=== PATIENT | male | born 1985 | race Caucasian/White ===

== ENCOUNTER 2016-10-26 23:36 | Inpatient (IN) | payer MEDICARE, OTHER ==
--- NOTE | ~2016-10-26 | PA ---
Unit #: [id number] #: [id number] Patient: ROSA MARIA MACIAS [id number] [facility] [address] [place] [address] [id number] MR#: [id number] NAME: ROSA MARIA MACIAS. ROOM: [facility] Age: 31 Sex: M Admission Date: 10/26/2016 : 1985 Date of Assessment: 10/27/2016 Attending Physician: Sukumar Willams M.D. Admitting Physician: Sukumar Willams M.D. Primary Care Physician: Primary Care Physician No PSYCHIATRIC ASSESSMENT IDENTIFYING INFORMATION The patient is a 31-year-old single white male admitted to the [address] [place] [address] unit after presenting to this facility voicing positive suicidal ideation. INFORMANT(S) Patient. RELIABILITY Fair. CHIEF COMPLAINT The presiding judge told me to come. HISTORY OF PRESENT ILLNESS The patient is a 31-year-old single white male just released from incarceration. 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 The patient reports that he had recently relapsed on heroin and had spent some time in [facility]. He has been off his medications during that time and now is reporting increased depression and thoughts of suicide though he reports that these have resolved somewhat. He was last prescribed Wellbutrin, Neurontin and Zyprexa by Dr. Montague who treated him at this facility in late August 2016. For a more complete history of present illness, please refer to previous dictated notes. PAST PSYCHIATRIC HISTORY Reviewed, no changes. FAMILY HISTORY/SOCIAL HISTORY Reviewed, no changes. MEDICAL HISTORY Reviewed, no changes. MEDICATION HISTORY 1. Neurontin. 2. Claritin. 3. Wellbutrin XL. 4. Zyprexa. ALLERGIES Chloral hydrate. Unit #: [id number] #: [id number] Patient: ROSA MARIA MACIAS MENTAL STATUS EXAM At this time, reveals the patient to be a well-developed, well-nourished white male appearing stated age. He is in no apparent physical distress at time of examination. He is awake, alert, oriented in spheres. His mood is mildly dysphoric. His affect is constricted. Speech is generally relevant and coherent. There are no gross deficits in memory or cognition noted. Intelligence is judged to be in the average range based on fund of knowledge. The patient is cooperative throughout the interview. He is currently reporting positive suicidal ideation. He denies homicidal ideation. He denies any psychotic symptoms. His judgement and insight appear to be reasonably intact. ASSETS AND LIABILITIES Assets, motivation for change. Liabilities, lack of resources, legal issues. ADMITTING DIAGNOSES 1. Opioid use disorder. 2. Dysthymic disorder. 3. Environmental allergies. PSYCHIATRIC PLAN/TREATMENT GOALS The patient will be restarted on previously prescribed medications. I will reluctantly restart Neurontin but will not plan to refill this medication given its potential for abuse with opioids. The patient will participate in appropriate prather and milieu activities and will be transferred to a unit where he can participate in chemical dependence programming. ESTIMATED LENGTH OF STAY Three to five days. Dictated by... Sukumar Willams M.D. CHAYO/skylar TD: 10/27/2016 11:19 JOB #: [id number] PSYCHIATRIC ASSESSMENT X Sukumar Willams MD X PSYCHIATRIC ASSESSMENT
--- NOTE | ~2016-10-26 | PN ---
Unit #: [id number] #: [id number] Patient: ROSA MARIA MACIAS [id number] [facility] [address] [place] [address] [id number] MR#: [id number] NAME: ROSA MARIA MACIAS. ROOM: P202 Age: 31 Sex: M Admission Date: 10/26/2016 : 1985 Attending Physician: Sukumar Willams M.D. Admitting Physician: Sukumar Willams M.D. Primary Care Physician: Primary Care Physician Michelle GAMING NOTES DATE 10/27/2016 DISCUSSION The patient is complaining of some irritability and anxiety. He states that he has been on propanolol in the past and request re-initiation of this medication. We will start the medication at a dose of a 20 mg twice daily. Dictated by... Sukumar Willams M.D. CB/surya TD: 10/28/2016 14:22 JOB #: [id number] DOROTHY GAMING NOTES X Sukumar Willams MD PROGRESS NOTE
--- NOTE | ~2016-10-26 | DS ---
Unit #: [id number] #: [id number] Patient: ROSA MARIA MACIAS [id number] [place] [address] [id number] MR#: [id number] NAME: ROSA MARIA MACIAS. ROOM: P202 Age: 31 Sex: M Admission Date: 10/26/2016 : 1985 Discharge Date: 10/29/2016 Attending Physician: Sukumar Willams M.D. Primary Care Physician: Primary Care Physician No DISCHARGE SUMMARY REASON FOR ADMISSION The patient is a 31-year-old single white male, admitted to the [address] [place] [address] unit with a history of opioid dependence and depression. HOSPITAL COURSE The patient was admitted to the [address] [place] [address] unit and placed on suicide precautions. He had been recommend to this facility by his optics technical officer after producing a "dirty urine." The patient reports that the patient's stay in the hospital was a brief and uneventful one. He did complain of some daytime jitteriness and reported history of positive response to Inderal. He was restarted on this medication at a dose of 20 mg daily and was continued on previously prescribed Wellbutrin and Zyprexa. By 10/29/2016, the patient was in brighter spirits and requested discharge. He was agreeable with plan for followup in the intensive outpatient program provided by this facility and discharge was ordered. FINAL DIAGNOSES Opioid use disorder, dysthymic disorder, environmental allergies. DISPOSITION ON DISCHARGE The patient is discharged on the following medications; Wellbutrin XL 150 mg q.a.m. for depression, Zyprexa 5 mg at h.s. for mood stabilization, Inderal 20 mg b.i.d. for anxiety, Neurontin 800 mg t.i.d. for pain, Claritin 10 mg once daily for environmental allergies. DISCHARGE INSTRUCTIONS No dietary or physical restrictions were placed on the patient at the time of discharge. FOLLOWUP Followup will take place through the auspices of the chemical dependency intensive outpatient program provided by this facility. PROGNOSIS The patient's prognosis is considered fair. Dictated by... Sukumar Willams M.D. CB/anthony TD: 10/30/2016 01:31 Unit #: [id number] #: [id number] Patient: ROSA MARIA MACIAS JOB #: [id number] DISCHARGE SUMMARY X Sukumar Willams MD DISCHARGE SUMMARY
--- NOTE | ~2016-10-26 | HP ---
Unit #: [id number] #: [id number] Patient: ROSA MARIA MACIAS [id number] [place] [address] [id number] I MR#: [id number] NAME: ROSA MARIA MACIAS. ROOM: P202 Age: 31 Sex: M Admission Date: 10/26/2016 : 1985 Attending Physician: Sukumar Willams M.D. Admitting Physician: Sukumar Willams M.D. Primary Care Physician: Primary Care Physician No HISTORY AND PHYSICAL HISTORY OF PRESENT ILLNESS Rosa Maria is a 31-year-old male admitted on 10/26/[address] [place] [address] for suicidal ideation. PAST MEDICAL HISTORY None. PAST SURGICAL HISTORY 1. Tonsil and adenoidectomy. 2. Bilateral ear tube placement. ALLERGIES Chloral hydrate. SOCIAL HISTORY No tobacco use. Does report occasional alcohol use and daily heroin use. He was recently in long-term and has not used in the past month. FAMILY HISTORY Noncontributory. REVIEW OF SYSTEMS CONSTITUTIONAL: No fever or chills. HEENT: Denies any sore throat, ear pain or runny nose. CARDIOVASCULAR: Denies chest pain, irregular heart rhythm or palpitations. CHEST: Denies shortness of breath or cough. No hemoptysis. GASTROINTESTINAL: Denies nausea, vomiting, diarrhea or chronic constipation. ENDOCRINE: Denies history of increased thirst or urination. No recent significant weight loss or gain. GENITOURINARY: Denies dysuria, frequency, or hematuria. SKIN: Denies any rashes. HEMATOLOGIC: Denies history of increased bleeding or bruising. MUSCULOSKELETAL: Denies any hot, swollen joints. No generalized muscle pain. NEUROLOGIC: Denies problems with vision or speech. No frequent, severe headaches. No numbness, tingling or weakness in any extremities. Denies loss of bladder or bowel control. CURRENT MEDICATIONS None. PHYSICAL EXAMINATION Unit #: [id number] #: [id number] Patient: ROSA MARIA MACIAS GENERAL: Alert, oriented, in no acute distress. VITAL SIGNS: Blood pressure 137/87, heart rate 100, temperature 98.4. HEIGHT: 6 feet 1. WEIGHT: 203 pounds. SKIN: Warm and dry without rash or lesion. HEENT: Normocephalic. TMs not viewed. Oral and nasal passages clear. Conjunctivae clear. PERRLA. EOMs intact. NECK: Supple without lymphadenopathy or thyromegaly. HEART: Regular rate and rhythm without murmur. LUNGS: Clear. ABDOMEN: Soft, nontender, without masses or hepatosplenomegaly. : Not done. EXTREMITIES: No evidence of cyanosis, clubbing or edema. Moves all without focal deficit. NEUROLOGICAL: Grossly within normal limits. Cranial Nerves: II: Visual harrell are intact. III, IV AND : Extraocular movements are intact. Pupils are equal, round and reactive to light. V: Facial sensation is grossly normal. VII: Facial movements and expression are normal. VIII: Auditory acuity grossly intact. IX, X: Uvula is midline. Phonation is normal. XI: Patient shrugs shoulders and turns head normally. XII: Tongue protrudes in the midline. Sensory and Motor Function: Sensory and motor sensation is grossly normal. Motor: moves all extremities well. Coordination: Gait is normal. Deep Tendon Reflexes: Intact. IMPRESSION Psychiatric admission. RECOMMENDATIONS PSYCHIATRIC: Per psychiatrist. MEDICAL: No contraindications to participate in facility's activities. MEDICAL PROGNOSIS Good. MEDICAL CONDITION Stable. Dictated by... Gisela Lockwood/skylar TD: 10/27/2016 18:36 JOB #: [id number] Unit #: [id number] #: [id number] Patient: ROSA MARIA MACIAS HISTORY AND PHYSICAL X JENNIFER NEAL APRN X HISTORY AND PHYSICAL
[~2016-10-26 23:36] MED LIST: AMOXICILLIN PO; DICLOFENAC PO; FLEXERIL PO; KETOPROFEN PO; MEDROL PO; VICODIN 5/500 T1 TAB PO; [UNRECOGNIZED DRUG - REMARK]; [UNRECOGNIZED DRUG - REMARK]
[2016-10-27 14:24] LABS: URINE APPEARANCE CLEAR; URINE BILIRUBIN NEG (NEG); URINE BLOOD NEG (NEG); URINE COLOR YELLOW; URINE GLUCOSE NEG (NEG); URINE KETONE NEG (NEG); URINE LEUKOCYTE ESTERASE NEG (NEG); URINE NITRATE NEG (NEG); URINE PH 6.5 (5-8); URINE PROTEIN 2+ (NEG); URINE SPECIFIC GRAVITY 1.021 (1.003-1.035); URINE UROBILINOGEN 0.2 MG/DL (NEG)
[2016-10-27 14:26] LABS: URBCS1 AUWI 0-2 /[HPF] (0-2); URINE BACTERIA AUWI NEG (NEGATIVE); URINE SQUAMOUS EPITHELIAL CELL NONE SEEN /[HPF]
[2016-10-27 14:36] LABS: AMPHETAMINE NEG (NEG); BARBITURATES NEG (NEG); BENZODIAZEPINES NEG (NEG); COCAINE NEG (NEG); MARIJUANA NEG (NEG); OPIATES NEG (NEG); TRICYCLIC ANTIDEPRESSANTS NEG (NEG); U METHADONE NEG (NEG)
[2016-10-28 11:14] LABS: BASOPHIL% 0.7 % (0-2.5); EOSINOPHIL# 0.1 X10e3 (0-0.7); EOSINOPHIL% 1.8 % (0.0-7.0); HEMATOCRIT 46.5 % (38.0-50.0); LYMPHOCYTE# 1.5 X10e3 (1.0-3.5); LYMPHOCYTE% 20.5 % (17.0-45.0); MEAN CORPUSCULAR HEMOGLOBIN 31.9 PG (28-34); MEAN CORPUSCULAR HGB CONC 34.3 g/dL (30-36); MEAN PLATELET VOLUME 9.3 FL (6.5-11.5); MONOCYTE# 0.5 X10e3 (0-1.0); MONOCYTE% 6.6 % (3.0-12.0); NEUTROPHIL# 5.1 X10e3 (1.5-7.1); NEUTROPHIL% 70.4 % (40-75); PLATELET COUNT 165 X10e3 (140-420); WHITE BLOOD COUNT 7.2 X10e3 (4.0-10.5)
[2016-10-28 11:16] LABS: DIFF IND NO
[2016-10-28 11:56] LABS: THYROID STIMULATING HORMONE 0.77 uIU/ml (0.34-5.60)
[2016-10-28 12:03] LABS: FREE THYROXIN (T4) 0.8 ng/dL (0.58-1.64)
[2016-10-28 12:06] LABS: ALBUMIN SERUM 4.3 g/dL (3.5-5.0); ALKALINE PHOSPHATASE 43 U/L (32-92); ALT (SGPT) 26 U/L (10-40); AST (SGOT) 22 U/L (10-42); BILIRUBIN,TOTAL 0.8 mg/dL (0.2-2.0); BLOOD UREA NITROGEN 6 mg/dL (9-23); CALCIUM SERUM 9.2 mg/dL (8.4-10.2); CARBON DIOXIDE 28 mmol/L (22-31); CHLORIDE 104 mmol/L (100-111); CREATININE SERUM 0.8 mg/dL (0.6-1.4); GLOM FILT RATE Estimated ABOVE60 mL/min (>60); GLUCOSE FASTING 91 mg/dL (70-110); POTASSIUM 4.6 mmol/L (3.5-5.1); PROTEIN TOTAL SERUM 6.8 g/dL (6.0-8.3); SODIUM 140 mmol/L (135-145)
== END 2016-10-29 16:25 | DRG 897 ==
LOC: P2L 23:36 → P2S 10-27 14:03 → POF 10-29 13:55 → P2S 10-29 13:59
PROVIDERS: Specialist
DX: F11.20 Opioid dependence, uncomplicated (principal); R45.851 Suicidal ideations; F34.1 Dysthymic disorder; F41.9 Anxiety disorder, unspecified
CPT/HCPCS: 80053; 80307; 81003; 84439; 84443; 85025

== ENCOUNTER 2016-12-03 12:32 | Inpatient (IN) | payer MEDICARE, OTHER ==
--- NOTE | ~2016-12-03 | PA ---
Unit #: [id number] #: [id number] Patient: ROSA MARIA MACIAS [id number] [facility] [address] [place] [address] [id number] MR#: [id number] NAME: ROSA MARIA MACIAS ROOM: P206 Age: 31 Sex: M Admission Date: 12/03/2016 : 1985 Date of Assessment: 12/04/2016 Attending Physician: Cruz Montague M.D. Admitting Physician: Cruz Montague M.D. Primary Care Physician: Primary Care Physician No PSYCHIATRIC ASSESSMENT INFORMANTS The patient's reliability, poor; chart reliability, good. CHIEF COMPLAINT Aggression, anger, anxiety. HISTORY OF PRESENT ILLNESS Mr. Rosa Maria Macias is a 31-year-old male, seen on . The patient was stepped up from [facility] level of care due to increase in aggression, paranoia, mood lability. The patient admitted using meth recently. The patient reported to the field underwriter about killing himself. The patient appeared agitated, irritable, slurring speech, stumbling, all nodding off. The patient was guarded and paranoid. The patient reported feeling sad, depressed, having suicidal ideation. The patient served 38 days in long-term in having to come to all things stolen by his sister. The patient reported a lot of stress. The patient reported feeling sad, depressed, hopelessness. The patient denied any homicidal ideation, but guarded and paranoid, attending to internal stimuli. Needing inpatient admission at this time for psychiatric stabilization. PAST PSYCHIATRIC HISTORY Remarkable for history of previous treatment at [facility] inpatient and outpatient in [facility] level of care. FAMILY HISTORY AND SOCIAL HISTORY The patient lives with his mom, good support system. No history of any abuse. History of legal charges in the past. No known history of physical abuse or sexual abuse. MEDICAL HISTORY Unremarkable for any chronic medical illness. Musculoskeletal; muscle strength and tone, no atrophy or abnormal movement. Gait normal. MEDICATION HISTORY The patient is on Wellbutrin, Zoloft, Neurontin, Inderal. ALLERGIES No known drug allergies. SUBSTANCE ABUSE HISTORY The patient reported alcohol use, age of onset 15; marijuana, age of onset 15; opioid, age of onset 24. The patient admitted using meth recently. Unit #: [id number] #: [id number] Patient: ROSA MARIA MACIAS REVIEW OF SYSTEMS HEENT: Eyes, clear. Ears, nose, mouth, and throat; clear. CARDIOVASCULAR: Unremarkable. RESPIRATORY: Unremarkable. GI: Unremarkable. : Unremarkable. SKIN: Unremarkable. LYMPH NODE: Unremarkable. NEUROLOGIC: Unremarkable. ENDOCRINE: Unremarkable. HEMATOLOGIC: Unremarkable. ALLERGIC/IMMUNOLOGIC: Unremarkable. MUSCULOSKELETAL: Muscle strength and tone, no atrophy or abnormal movement. Gait normal. MENTAL STATUS EXAMINATION CONSTITUTIONAL: Measurement of vital signs; temperature 98.5, pulse 104, blood pressure 137/69. Height 6 feet 1 inch and weight 205 pounds. GENERAL APPEARANCE: The patient is somewhat hyperactive, agitated. The patient did not show any facial deformity. Noted multiple tattoos. MUSCULOSKELETAL: Please see above. PSYCHIATRIC EXAMINATION Description of speech; rapid and circumstantial. Description of thought process, circumstantial. Description of association, loose, circumstantial, guarded, paranoid, attending to internal stimuli, agitation, mood lability, paranoia, depression, suicidal ideation. Denied any homicidal ideation. Description of the patient's judgment; concerning everyday activity, poor. Social situation, poor. Concerning psychiatric condition, poor. Complete mental status examination; oriented in time, place, and person. Recent and remote memory, poor. Attention span and concentration, poor. Language, able to name object and repeat phrases. Fund of knowledge, poor. Vocabulary, poor. Mood and affect, sad and dysphoric. Insight and judgment, poor. ASSETS AND LIABILITIES Assets; the patient is articulate, able to take care of his ADL. Liability; mood lability, paranoia, depression. ADMITTING DIAGNOSES Psychiatric: 1. Bipolar mood disorder, not otherwise specified, F31.89. 2. Methamphetamine abuse, moderate, F15.20. 3. 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 Secondary diagnosis: Deferred. Medical diagnosis: None. Stressors: Psychosocial stressors. PSYCHIATRIC PLAN AND TREATMENT GOAL 1. Advised to admit the patient on the inpatient unit. Provide safe, supportive, and structured environment. 2. Ordered labs; CBC, CMP, UA, and UDS. 3. Advised Ativan 1 mg q.4 p.r.n. for severe agitation. The patient was Unit #: [id number] #: [id number] Patient: ROSA MARIA MACIAS advised to start with Risperdal 1 mg b.i.d. for mood stabilization, and Neurontin 300 mg t.i.d. Plan to resume other medication later. The patient to attend all the programing. Treatment goal to attain euthymic mood, gain insight into his problem, and learn coping skills. DISCHARGE PLAN Plan to stabilize the patient and consider followup in outpatient program. ESTIMATED LENGTH OF STAY 5 days. Dictated by... Mala Monte/anthony TD: 12/05/2016 05:01 JOB #: [id number] PSYCHIATRIC ASSESSMENT Page 1 of 1 X Cruz Montague MD X PSYCHIATRIC ASSESSMENT
--- NOTE | ~2016-12-03 | HP ---
Unit #: [id number] #: [id number] Patient: ROSA MARIA MACIAS [id number] [place] [address] [id number] MR#: [id number] NAME: ROSA MARIA MACIAS. ROOM: P214 Age: 31 Sex: M Admission Date: 12/03/2016 : 1985 Attending Physician: Cruz Montague M.D. Admitting Physician: Cruz Montague M.D. Primary Care Physician: Primary Care Physician No HISTORY AND PHYSICAL HISTORY OF PRESENT ILLNESS Rosa Maria is a 31 year old admitted to [address] [place] [address] because of his drug use. PAST MEDICAL HISTORY History of illicit substance abuse to include methamphetamine PAST SURGICAL HISTORY 1. T & A 2. PE tubes ALLERGIES Chlorohydrate SOCIAL HISTORY Smokes on occasion. Denies alcohol but admits to a history of illicit drug use. FAMILY HISTORY Medically noncontributory. REVIEW OF SYSTEMS CONSTITUTIONAL: No fever or chills. HEENT: Denies any sore throat, ear pain or runny nose. CARDIOVASCULAR: Denies chest pain, irregular heart rhythm or palpitations. CHEST: Denies shortness of breath or cough. No hemoptysis. GASTROINTESTINAL: Denies nausea, vomiting, diarrhea or chronic constipation. ENDOCRINE: Denies history of increased thirst or urination. No recent significant weight loss or gain. GENITOURINARY: Denies dysuria, frequency, or hematuria. SKIN: Denies any rashes. HEMATOLOGIC: Denies history of increased bleeding or bruising. MUSCULOSKELETAL: Denies any hot, swollen joints. No generalized muscle pain. NEUROLOGIC: Denies problems with vision or speech. No frequent, severe headaches. No numbness, tingling or weakness in any extremities. Denies loss of bladder or bowel control. CURRENT MEDICATIONS No orders received at the time of this dictation. PHYSICAL EXAMINATION GENERAL: Alert, well-nourished, in no apparent distress. Unit #: [id number] #: [id number] Patient: ROSA MARIA MACIAS VITAL SIGNS: Blood pressure 124/72, heart rate 60, respirations 16, temperature 98.6. WEIGHT: 182 pounds. HEIGHT: 5'6". SKIN: Warm and dry without rash or lesion. HEENT: Normocephalic. TMs not viewed. Oral and nasal passages clear. Conjunctivae clear. Pupils equal, round and reactive to light and accommodation. Extraocular movements intact. NECK: Supple without lymphadenopathy or thyromegaly. HEART: Regular rate and rhythm without murmur. LUNGS: Clear. ABDOMEN: Soft, nontender. : Not done. EXTREMITIES: No evidence of cyanosis, clubbing or edema. Moves all extremities without focal deficit. NEUROLOGICAL: Grossly within normal limits. Cranial Nerves: II: Visual harrell are intact. III, IV AND : Extraocular movements are intact. Pupils are equal, round and reactive to light. V: Facial sensation is grossly normal. VII: Facial movements and expression are normal. VIII: Auditory acuity grossly intact. IX, X: Uvula is midline. Phonation is normal. XI: Patient shrugs shoulders and turns head normally. XII: Tongue protrudes in the midline. Sensory and Motor Function: Sensory and motor sensation is grossly normal. Motor: moves all extremities well. Coordination: Gait is normal. Deep Tendon Reflexes: Intact. IMPRESSION Psychiatric admission RECOMMENDATIONS PSYCHIATRIC: Per psychiatrist. MEDICAL: I see no contraindications to participating in facility's activities. MEDICAL PROGNOSIS Good. MEDICAL CONDITION Stable. Dictated by... Yamileth Chen P.A.-C. for Mala Glez/clarisa TD: 12/03/2016 22:42 JOB #: [id number] Unit #: [id number] #: [id number] Patient: ROSA MARIA MACIAS HISTORY AND PHYSICAL Page 1 of 1 X Yamileth Chen HISTORY AND PHYSICAL
--- NOTE | ~2016-12-03 | PN ---
Unit #: [id number] #: [id number] Patient: ROSA MARIA MACIAS [id number] [facility] [address] [place] [address] [id number] MR#: [id number] NAME: ROSA MARIA MACIAS. ROOM: P206 Age: 31 Sex: M Admission Date: 12/03/2016 : 1985 Attending Physician: Cruz Montague M.D. Admitting Physician: Cruz Montague M.D. Primary Care Physician: Michelle Primary Care Physician [facility] PROGRESS NOTES DATE OF SERVICE 12/05/2016 DISCUSSION Rosa Maria is a 31-year-old male seen on 12/05/2016. Patient punched a wall yesterday and became angry, upset, and received a Haldol, Cogentin, Ativan injection. Patient's vital signs: 97.5, 133, and 89/65. Patient refusing to get x-ray done or take the picture of his hand. Patient was very noncompliant, withdrawn, isolative, guarded, and paranoid. Mood lability. Patient was placed on 72-hour hold yesterday due to above-mentioned behavior. Patient has a history of methamphetamine use recently. Compliant with medication. Isolative. Able to maintain safe behavior. REVIEW OF SYSTEMS Complete review of systems unremarkable. MENTAL STATUS EXAMINATION GENERAL APPEARANCE: Patient dressed casually. ATTENTION SPAN AND CONCENTRATION: Poor. ORIENTATION: Oriented in place, person, and self. MOOD AND AFFECT: Labile. SPEECH: Rapid. THOUGHT PROCESS: Circumstantial. ASSOCIATION: Guarded, paranoid, mood lability, aggression. RECENT AND REMOTE MEMORY: Poor. INSIGHT AND JUDGEMENT: Poor. DIAGNOSES 1. Psychosis, NOS. 2. Amphetamine use disorder, moderate. 3. Mood disorder, NOS. ASSESSMENT/PLAN Advised to continue with current medication and therapeutic protocol. If needed, consider further adjustment of medication. We will closely monitor patient's mood and behavior. Dictated by... Cruz Montague M.D. Unit #: [id number] #: [id number] Patient: ROSA MARIA MACIAS CARMELINA/snadeep TD: 12/06/2016 12:24 JOB #: [id number] [facility] PROGRESS NOTES Page 1 of 1 X Cruz Montague MD PROGRESS NOTE
--- NOTE | ~2016-12-03 | CO ---
Unit #: [id number] #: [id number] Patient: ROSA MARIA MACIAS [id number] [place] [address] [id number] I MR#: [id number] NAME: ROSA MARIA MACIAS. ROOM: P209 Age: 31 Sex: M Admission Date: 12/03/2016 : 1985 Attending Physician: Cruz Montague M.D. Primary Care Physician: Primary Care Physician No Consultation Date: 12/07/2016 CONSULTATION REPORT SUBJECTIVE Rosa Maria is a 31-year-old who hit a solid wood door at least twice in a fit of anger on 12/04/2016. X-rays from 12/04/2016 showed a transversely oriented nondisplaced fracture involving the midportion of the fourth metacarpal. We were asked to assess and treat. At that time, the patient was very belligerent and a threat to himself and others. It was decided that any kind of solid splint should not be used for safety reasons. We did suggest rolling multiple washcloths and securing them with paper tape. The patient adamantly and angrily refused this. For 3 days, he has complained of a significant discomfort in his hand, but continued to refuse any kind of immobilization. Finally on 12/07/2016, he agreed to treatment. After assessing and it was our decision that he was safe with himself and others to provide as much immobilization as we could. He was placed in a fiberglass gutter splint secured with an Wilberto wrap. He tolerated this well and had no further complaints of this comfort. The patient knows he is to follow up with PCP/Ortho for definitive treatment. Dictated by... Yamileth Chen P.A.-C. for Mala Glez/anthony TD: 12/08/2016 13:01 JOB #: [id number] CONSULTATION REPORT Page 1 of 1 X Yamileth Chen CONSULTATION REPORT
--- NOTE | ~2016-12-03 | PN ---
Unit #: [id number] #: [id number] Patient: ROSA MARIA MACIAS [id number] [facility] [address] [place] [address] [id number] I MR#: [id number] NAME: ROSA MARIA MACIAS. ROOM: P209 Age: 31 Sex: M Admission Date: 12/03/2016 : 1985 Attending Physician: Cruz Montague M.D. Admitting Physician: Mala Monte PROGRESS NOTES DATE OF SERVICE: 12/09/2016 DISCUSSION Rosa Maria is a 31-year-old male, seen on 12/09/2016. The patient interviewed, chart reviewed, and obtained information from nursing staff. The patient continues to be isolative, guarded, flat affect. The patient did not show any aggression, but still sad, depressed, tolerating medication fairly well. The patient was able to eat and sleep. Denied any thoughts of harming self or others, but sad and depressed. REVIEW OF SYSTEMS Complete review of systems unremarkable. MENTAL STATUS EXAMINATION General appearance, the patient dressed casually. Attention span and concentration, fair. Oriented in time, place, and person. Mood and affect, sad, dysphoric, flat. Speech, monotone. Thought process, concrete. The patient denied any thoughts of harming self or others, but withdrawn, isolative, guarded, seclusive. Recent and remote memory, poor. Insight and judgment, poor. DIAGNOSES 1. Psychosis, not otherwise specified. 2. Mood disorder, not otherwise specified. 3. Amphetamine use disorder, moderate. ASSESSMENT AND PLAN Advised to continue with current medication and therapeutic protocol. If needed, consider further adjustment of medication. Dictated by... Mala Monte/anthony TD: 12/09/2016 23:31 JOB #: [id number] Unit #: [id number] #: [id number] Patient: ROSA MARIA MACIAS PROGRESS NOTES Page 1 of 1 X Cruz Montague MD PROGRESS NOTE
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
--- NOTE | ~2016-12-03 | PN ---
Unit #: [id number] #: [id number] Patient: ROSA MARIA MACIAS [id number] [facility] [address] [place] [address] [id number] I MR#: [id number] NAME: ROSA MARIA MACIAS. ROOM: P209 Age: 31 Sex: M Admission Date: 12/03/2016 : 1985 Attending Physician: Cruz Montague M.D. Admitting Physician: Cruz Montague M.D. Primary Care Physician: Primary Care Physician Michelle GAMING NOTES DATE OF SERVICE: 12/03/2016 DISCUSSION Rosa Maria Macias is a 31-year-old white male, seen on 12/03/2016 in outpatient program. The patient's speech was rapid, guarded, and paranoid. The patient admitted to using methamphetamine, having suicidal ideation, unable to contract for safety. REVIEW OF SYSTEMS Complete review of systems unremarkable. MENTAL STATUS EXAMINATION General appearance, the patient is tall and well built. Attention span and concentration, poor. Oriented in place and person. Mood and affect, labile. Speech, rapid, pressured. Thought process, circumstantial. Association; guarded, paranoid, suicidal ideation. Recent and remote memory, poor. Insight and judgment, poor. DIAGNOSES 1. Bipolar mood disorder, not otherwise specified, F31.89. 2. Amphetamine use disorder, moderate, F15.20. ASSESSMENT/PLAN Recommending at this time the patient to be admitted to inpatient hospital. If the patient is unable to stand, we will put him on a hold for psychiatric stabilization. We will follow up the patient in inpatient program. Dictated by... Mala Monte/anthony TD: 12/08/2016 07:32 JOB #: [id number] Unit #: [id number] #: [id number] Patient: ROSA MARIA MACIAS PROGRESS NOTES Page 1 of 1 X Cruz Montague MD PROGRESS NOTE
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
--- NOTE | ~2016-12-03 | PN ---
Unit #: [id number] #: [id number] Patient: ROSA MARIA MACIAS [id number] [facility] [address] [place] [address] [id number] I MR#: [id number] NAME: ROSA MARIA MACIAS. ROOM: P209 Age: 31 Sex: M Admission Date: 12/03/2016 : 1985 Attending Physician: Cruz Montague M.D. Admitting Physician: Cruz Montague M.D. Primary Care Physician: Primary Care Physician Michelle DE LA CRUZ PROGRESS NOTES DATE OF SERVICE 12/07/2016 DISCUSSION Rosa Maria Macias is a 31-year-old male seen on 12/07/2016. The patient interviewed, chart reviewed. Obtained information from nursing staff. The patient was compliant, cooperative, withdrawn, isolative, flat affect. Sad, dysphoric mood. Compliant with medication. The patient was able to maintain safe behavior. Denied any side effects from medications. The patient's vital signs stable, 97.6, 80, 123/81, somewhat sleepy, isolative, pleasant. Complete Review of Systems: Unremarkable. MENTAL STATUS EXAMINATION General Appearance: The patient dressed casually. Attention span, concentration: Fair. Oriented in place and person. Mood and affect labile. Speech: Monotone. Thought process: [place]. The patient denied any thoughts of harming self or others but still seclusive, isolative, flat affect. Recent and remote memory: Poor. Insight and judgment: Poor. DIAGNOSES 1. Mood disorder not otherwise specified. 2. Bipolar mood disorder not otherwise specified. 3. Methamphetamine abuse, moderate. ASSESSMENT/PLAN Advised to continue with current medication and therapeutic protocol. If needed, consider further adjustment of medication. Dictated by... Mala Monte/gabriel TD: 12/08/2016 13:14 JOB #: [id number] Unit #: [id number] #: [id number] Patient: ROSA MARIA MACIAS [facility] PROGRESS NOTES Page 1 of 1 X Cruz Montague MD PROGRESS NOTE
--- NOTE | ~2016-12-03 | PN ---
Unit #: [id number] #: [id number] Patient: ROSA MARIA MACIAS [id number] [facility] [address] [place] [address] [id number] I MR#: [id number] NAME: ROSA MARIA MACIAS. ROOM: P209 Age: 31 Sex: M Admission Date: 12/03/2016 : 1985 Attending Physician: Cruz Montague M.D. Admitting Physician: Cruz Montague M.D. Primary Care Physician: Primary Care Physician Michelle GAMING NOTES DATE 12/08/2016 DISCUSSION Rosa Maria Macias is a 31-year-old male seen on 12/08/2016. Patient interviewed, chart reviewed, obtained information from nursing staff. The patient continues to be guarded, paranoid, flat affect, sad/dysphoric mood. Patient not tolerating medication fairly well, isolative, flat affect. Patient was complaining of pain in his right arm, subsequently ordered Motrin. The patient was mad, angry at the time of admission and self-harm. X-ray of his hand showed a transversely oriented, nondisplaced fracture involving mid portion of the fourth metacarpal. Patient scheduled to follow up with a medical doctor. Medical consult was placed. Complete review of systems unremarkable. MENTAL STATUS EXAMINATION General appearance: Patient dressed casually. Attention span and concentration fair. Oriented in place and person. Mood and affect was sad/dysphoric. Speech monotone. Thought processes: [place]. Patient denied any thoughts of harming self or others, but guarded, paranoid. Recent and remove memory poor. Insight and judgment poor. DIAGNOSIS 1. Bipolar mood disorder, NOS 2. Amphetamine use disorder, moderate ASSESSMENT/PLAN Advised to continue with current medication and therapy protocol. If needed, consider further adjustment of medication. Dictated by... Mala Monte/surya TD: 12/09/2016 11:21 JOB #: [id number] Unit #: [id number] #: [id number] Patient: ROSA MARIA MACIAS [facility] PROGRESS NOTES Page 1 of 1 X Cruz Montague MD PROGRESS NOTE
--- NOTE | ~2016-12-03 | PN ---
Unit #: [id number] #: [id number] Patient: ROSA MARIA MACIAS [id number] [facility] [address] [place] [address] [id number] I MR#: [id number] NAME: ROSA MARIA MACIAS ROOM: P206 Age: 31 Sex: M Admission Date: 12/03/2016 : 1985 Attending Physician: Cruz Montague M.D. Admitting Physician: Cruz Montague M.D. Primary Care Physician: Primary Care Physician Michelle DE LA CRUZ PROGRESS NOTES DATE 11/26/2016 DISCUSSION Rosa Maria Macias is a 31-year-old male seen on 11/26/2016. The patient interviewed, chart reviewed. Obtained information from nursing staff. The patient continues to report having racing thoughts, anxiety, mood lability but denied any thoughts of harming self or others. Denied any use of drugs or alcohol. Participating in the program. Complete review of systems unremarkable. MENTAL STATUS EXAMINATION General appearance, the patient dressed casually. Attention span and concentration fair. Oriented to place and person. Mood and affect was sad, dysphoric. Speech monotone. Thought process concrete. The patient denied any thoughts of harming self or others but guarded. Recent and remote memory poor. Insight and judgement poor. DIAGNOSES 1. Bipolar mood disorder NOS 2. Anxiety disorder NOS F31.89 F40.01 ASSESSMENT/PLAN 1. Supportive psychotherapy psychoeducation provided to the patient. 2. Educated about benefits and side effects of medication and course and prognosis of illness. 3. If needed consider adding a mood stabilizer. The patient was given crisis line number [id number]. 1. Dictated by... Mala Monte/clarisa TD: 12/05/2016 00:23 JOB #: [id number] Unit #: [id number] #: [id number] Patient: ROSA MARIA MACIAS [facility] PROGRESS NOTES Page 1 of 1 X Cruz Montague MD PROGRESS NOTE
--- NOTE | ~2016-12-03 | PN ---
Unit #: [id number] #: [id number] Patient: ROSA MARIA MACIAS [id number] [facility] [address] [place] [address] [id number] MR#: [id number] NAME: ROSA MARIA MACIAS. ROOM: P206 Age: 31 Sex: M Admission Date: 12/03/2016 : 1985 Attending Physician: Cruz Montague M.D. Admitting Physician: Cruz Montague M.D. Primary Care Physician: Primary Care Physician Michelle DE LA CRUZ PROGRESS NOTES DATE 12/06/2016 DISCUSSION Rosa Maria Macias is a 31-year-old male, seen on 12/06/2016. The patient interviewed, chart reviewed, and obtained information from the nursing staff. The patient reported still having problems with the anxiety, isolative, flat affect, sad, dysphoric mood. The patient was able to maintain safe behavior, cooperative, but still seclusive, isolative, guarded, paranoid, reported still feeling sad, depressed, and anxiety. REVIEW OF SYSTEMS Complete review of systems unremarkable. MENTAL STATUS EXAMINATION General appearance: Patient dressed casually. Attention span and concentration, fair. Oriented to place and person. Mood and affect, labile. Speech, rapid. Thought process, concrete. The patient denied any thoughts of harming self or others but guarded, paranoid. Recent and remote memory, poor. Insight and judgment, poor. DIAGNOSES 1. Bipolar mood disorder, NOS. 2. Psychosis, NOS. 3. Amphetamine abuse, moderate. ASSESSMENT/PLAN Advised to resume the patient's Zoloft to 100 mg daily and change Neurontin to 600 mg three times a day. Continue with the inpatient programming. If needed consider further adjustment of medication. Dictated by... Mala Monte/tello TD: 12/07/2016 11:56 JOB #: [id number] Unit #: [id number] #: [id number] Patient: ROSA MARIA MACIAS PROGRESS NOTES Page 1 of 1 X Cruz Montague MD X PROGRESS NOTE
--- NOTE | ~2016-12-03 | CR142 ---
[facility] A Service of [facility] & [facility] RADIOLOGY TEXT RESULTS PATIENT: ROSA MARIA MACIAS LOCATION: P2S P206- : [birth year] UNIT #: [id number] AGE: [address]: Cruz Montague MD SEX: M ORDER DR: [id number] [place], [place] [address] [id number] I MR#: [id number] Acc #: [id number] NAME: ROSA MARIA MACIAS : 1985 SEX: M STUDY DATE/TIME: 12/04/2016 15:20 UNIT: S ROOM: [facility] STUDY DESCRIPTION: CR Hand Min 3 Views Rt Attending Physician: Cruz Montague M.D. Ordering Physician: Cruz Montague M.D. Primary Care Physician: No Primary Care Physician MEDICAL IMAGING REPORT This report is preliminary unless electronic signature is present EXAM Right hand 3 views INDICATIONS Pain after punching door this morning. No comparisons available. FINDINGS There is a transverse oriented fracture involving the mid portion of the fourth metacarpal without displacement. There is soft tissue swelling involving the dorsum of the hand. Remainder of the study is unremarkable. IMPRESSION Transversely oriented nondisplaced fracture involving the mid portion of the fourth metacarpal. Dictated by... Mikel Thurman M.D. THIS IS AN ELECTRONICALLY VERIFIED REPORT Mikel Thurman M.D. at 12/05/2016 10:02 AM KEREN/mario TD: 12/04/2016 19:21 JOB #: [id number] MEDICAL IMAGING REPORT Page 1 of 1 COPY
[2016-12-05 09:50] LABS: BASOPHIL% 0.5 % (0-2.5); EOSINOPHIL# 0.1 X10e3 (0-0.7); EOSINOPHIL% 1.5 % (0.0-7.0); HEMATOCRIT 46.9 % (38.0-50.0); HEMOGLOBIN 15.9 gm/dL (13.0-16.0); LYMPHOCYTE# 1.4 X10e3 (1.0-3.5); LYMPHOCYTE% 24.2 % (17.0-45.0); MEAN CELL VOLUME 92.3 FL (83-96); MEAN CORPUSCULAR HEMOGLOBIN 31.3 PG (28-34); MEAN CORPUSCULAR HGB CONC 33.9 g/dL (30-36); MEAN PLATELET VOLUME 8.1 FL (6.5-11.5); MONOCYTE# 0.4 X10e3 (0-1.0); MONOCYTE% 7.4 % (3.0-12.0); NEUTROPHIL# 3.7 X10e3 (1.5-7.1); NEUTROPHIL% 66.4 % (40-75); PLATELET COUNT 174 X10e3 (140-420); RED BLOOD COUNT 5.08 X10e (3.90-5.60); WHITE BLOOD COUNT 5.6 X10e3 (4.0-10.5)
[2016-12-05 09:59] LABS: DIFF IND NO
[2016-12-05 10:04] LABS: ALBUMIN SERUM 4.2 g/dL (3.5-5.0); BILIRUBIN,TOTAL 1.3 mg/dL (0.2-2.0); CALCIUM SERUM 9.2 mg/dL (8.4-10.2); GLOM FILT RATE Estimated 100.6 mL/min (>60); POTASSIUM 4.5 mmol/L (3.5-5.1)
== END 2016-12-10 11:14 | disposition home or self-care (01) | DRG 885 ==
LOC: P2S 12:32
PROVIDERS: Psychiatry & Neurology Psychiatry
DX: F31.89 Other bipolar disorder (principal); F15.20 Other stimulant dependence, uncomplicated; F15.259 Other stimulant dependence with stimulant-induced psychotic disorder, unspecified; F39 Unspecified mood [affective] disorder; S62.91XA Unspecified fracture of right hand, initial encounter for closed fracture; S62.394A Other fracture of fourth metacarpal bone, right hand, initial encounter for closed fracture; Y92.239 Unspecified place in hospital as the place of occurrence of the external cause
CPT/HCPCS: 73130; 80053; 80307; 85025; 90853; J0515; J1630; J2060

== ENCOUNTER 2016-12-28 20:44 | Emergency (ER) | payer MEDICARE, OTHER | END 2016-12-29 01:10 | disposition home or self-care (01) | LOC: CED 20:44 | DX: S62.309D Unspecified fracture of unspecified metacarpal bone, subsequent encounter for fracture with routine healing (principal); Z46.4 Encounter for fitting and adjustment of orthodontic device; F17.210 Nicotine dependence, cigarettes, uncomplicated; J45.909 Unspecified asthma, uncomplicated; F31.9 Bipolar disorder, unspecified; Z88.8 Allergy status to other drugs, medicaments and biological substances | CPT/HCPCS: 29125; 99283 ==

== ENCOUNTER 2017-03-05 19:43 | Emergency (ER) | payer MEDICARE, OTHER ==
[~2017-03-05] VITALS: Ht 185.4 cm; Wt 90.3 kg
--- NOTE | ~2017-03-05 | EKG ---
PATIENT: ROSA MARIA MACIAS UNIT #: [id number] Ventricular Rate: 62 BPM Atrial Rate: 62 BPM P-R Interval: 126 ms QRS Duration: 78 ms Q-T Interval: 410 ms QTC Calculation(Bezet): 416 ms P [place]: 39 degrees Calculated R [place]: 21 degrees Calculated T [place]: 32 degrees Diagnosis Line: Normal sinus rhythm with sinus arrhythmia Diagnosis Line: Normal ECG Diagnosis Line: Diagnosis Line: Confirmed by MARIAMA HIGH MD ([id number]) on Diagnosis Line: 03/08/2017 7:26:20 AM INTERPRETING MD: LENNOX LÓPEZ
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
[2017-03-05 22:47] LABS: BASOPHIL# 0.1 X10e3 (0-0.3); BASOPHIL% 1.1 % (0-2.5); EOSINOPHIL# 0.1 X10e3 (0-0.7); EOSINOPHIL% 2.5 % (0.0-7.0); HEMATOCRIT 44.7 % (38.0-50.0); LYMPHOCYTE# 2.2 X10e3 (1.0-3.5); LYMPHOCYTE% 39.7 % (17.0-45.0); MEAN CORPUSCULAR HEMOGLOBIN 31.2 PG (28-34); MEAN CORPUSCULAR HGB CONC 33.5 g/dL (30-36); MEAN PLATELET VOLUME 8.8 FL (6.5-11.5); MONOCYTE# 0.6 X10e3 (0-1.0); MONOCYTE% 11.7 % (3.0-12.0); NEUTROPHIL# 2.5 X10e3 (1.5-7.1); PLATELET COUNT 158 X10e3 (140-420); RED CELL DISTRIBUTION WIDTH 13.6 % (11.0-15.5); WHITE BLOOD COUNT 5.4 X10e3 (4.0-10.5)
[2017-03-05 22:48] LABS: DIFF IND NO
[2017-03-05 23:08] LABS: BUN/CREATININE RATIO 8.75; CALCIUM SERUM 8.4 mg/dL (8.4-10.2); CREATININE SERUM 0.8 mg/dL (0.6-1.4); GLOM FILT RATE Estimated 119.9 mL/min (>60); POTASSIUM 3.4 mmol/L (3.5-5.1)
== END 2017-03-05 23:35 | disposition home or self-care (01) ==
LOC: CED 19:43
PROVIDERS: Emergency Medicine
DX: S06.0X9A Concussion with loss of consciousness of unspecified duration, initial encounter (principal); S20.219A Contusion of unspecified front wall of thorax, initial encounter; F11.10 Opioid abuse, uncomplicated; F41.9 Anxiety disorder, unspecified; F32.9 Major depressive disorder, single episode, unspecified; F17.200 Nicotine dependence, unspecified, uncomplicated; X58.XXXA Exposure to other specified factors, initial encounter
CPT/HCPCS: 36415; 70450; 71010; 80048; 85025; 93005; 99284

== ENCOUNTER 2017-03-08 15:35 | Inpatient (IN) | payer MEDICARE, OTHER ==
[~2017-03-08] VITALS: Ht 185.4 cm; Wt 90.7 kg
--- NOTE | ~2017-03-08 | PN ---
Unit #: [id number] #: [id number] Patient: ROSA MARIA MACIAS [id number] [facility] [address] [place] [address] [id number] MR#: [id number] NAME: ROSA MARIA MACIAS. ROOM: [facility] Age: 31 Sex: M Admission Date: 03/08/2017 : 1985 Attending Physician: Cruz Montague M.D. Admitting Physician: Cruz Montague M.D. Primary Care Physician: Primary Care Physician Michelle DE LA CRUZ PROGRESS NOTES DATE 03/10/2017 DISCUSSION Rosa Maria Macias is a 31-year-old male, seen on 03/10/2017. The patient interviewed, chart reviewed, and obtained information from the nursing staff. The patient reports that he is feeling better but still somewhat anxious, nervous. The patient's urine drug screen was positive for marijuana. REVIEW OF SYSTEMS Complete review of systems unremarkable. MENTAL STATUS EXAMINATION General appearance: Patient dressed casually. Attention span and concentration, fair. Oriented in time, place, and person. Mood and affect, labile. Speech, monotone. Thought process, concrete. The patient denied any thoughts of harming self or others but still isolative, guarded, flat affect, passive SI. Recent and remote memory, poor. Insight and judgment, poor. DIAGNOSES 1. Mood disorder, NOS. 2. History of bipolar mood disorder. ASSESSMENT/PLAN Advised to continue with the current medication and therapeutic protocol, and if needed consider further adjustment of medication. Dictated by... Mala Monte/tello TD: 03/12/2017 06:53 JOB #: [id number] Unit #: [id number] #: [id number] Patient: ROSA MARIA MACIAS [facility] PROGRESS NOTES Page 1 of 1 X Cruz Montague MD PROGRESS NOTE
--- NOTE | ~2017-03-08 | PN ---
Unit #: [id number] #: [id number] Patient: ROSA MARIA MACIAS [id number] [facility] [address] [place] [address] [id number] MR#: [id number] NAME: ROSA MARIA MACIAS. ROOM: [facility] Age: 31 Sex: M Admission Date: 03/08/2017 : 1985 Attending Physician: Cruz Montague M.D. Admitting Physician: Cruz Montague M.D. Primary Care Physician: Primary Care Physician Michelle DE LA CRUZ PROGRESS NOTES DATE 03/07/2017 DISCUSSION Mr. Macias is a 31-year-old male, seen on 03/09/2017. The patient interviewed, chart reviewed, and obtained information from the nursing staff. The patient was compliant and cooperative. Mood sad and depressed, suicidal ideation, withdrawn, isolative. REVIEW OF SYSTEMS Complete review of systems unremarkable. MENTAL STATUS EXAMINATION General appearance: Patient dressed in hospital attire. Attention span and concentration, fair. Oriented in time, place, and person. Mood and affect, sad and depressed. Speech, monotone. Thought process, concrete. The patient reported having suicidal ideation, denied any homicidal ideation, withdrawn, isolative, guarded. Recent and remote memory, poor. Insight and judgment, poor. DIAGNOSIS Major depressive disorder, recurrent, severe. ASSESSMENT/PLAN Advised to resume the patient's home medications such as Desyrel 100 mg at bedtime, Zoloft 100 mg at bedtime, Neurontin 300 mg three times a day, Wellbutrin XL 150 mg in the morning. If needed consider further adjustment of medication. Continue with the impatient programming. Dictated by... Mala Monte/tello TD: 03/11/2017 05:04 JOB #: [id number] Unit #: [id number] #: [id number] Patient: ROSA MARIA MACIAS PROGRESS NOTES Page 1 of 1 X Cruz Montague MD PROGRESS NOTE
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
--- NOTE | ~2017-03-08 | PN ---
Unit #: [id number] #: [id number] Patient: ROSA MARIA MACIAS [id number] [facility] [address] [place] [address] [id number] I MR#: [id number] NAME: ROSA MARIA MACIAS. ROOM: [facility] Age: 31 Sex: M Admission Date: 03/08/2017 : 1985 Attending Physician: Cruz Montague M.D. Admitting Physician: Cruz Montague M.D. Primary Care Physician: Primary Care Physician Michelle DE LA CRUZ PROGRESS NOTES DATE 03/12/2017 DISCUSSION Rosa Maria Macias is a 31-year-old male, seen on 03/12/2017. The patient reports feeling better with the increased dosage of Neurontin. The patient compliant and cooperative, affect was brighter. The patient is somewhat isolative, guarded. The patient denied any thoughts of harming self or others. REVIEW OF SYSTEMS Complete review of systems unremarkable. MENTAL STATUS EXAMINATION General appearance: Patient dressed in hospital attire. Attention span and concentration, fair. Oriented in time, place, and person. Mood and affect, labile. Speech, monotone. Thought process, concrete. The patient denied any thoughts of harming self or others but somewhat seclusive, isolative, guarded. Recent and remote memory, poor. Insight and judgment, poor. DIAGNOSIS Bipolar mood disorder, NOS. ASSESSMENT/PLAN Advised to continue with the current medication and therapeutic protocol, and if needed consider further adjustment of medication with the plan to transition the patient to outpatient program this week. Dictated by... Mala Monte/tello TD: 03/13/2017 06:21 JOB #: [id number] Unit #: [id number] #: [id number] Patient: ROSA MARIA MACIAS [facility] PROGRESS NOTES Page 1 of 1 X Cruz Montague MD X PROGRESS NOTE
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
--- NOTE | ~2017-03-08 | HP ---
Unit #: [id number] #: [id number] Patient: ROSA MARIA MACIAS [id number] [place] [address] [id number] I MR#: [id number] NAME: ROSA MARIA MACIAS. ROOM: [facility] Age: 31 Sex: M Admission Date: 03/08/2017 : 1985 Attending Physician: Cruz Montague M.D. Admitting Physician: Cruz Montague M.D. Primary Care Physician: Primary Care Physician No HISTORY AND PHYSICAL HISTORY OF PRESENT ILLNESS The patient is a 31-year-old male who states he is here for suicidal ideation and depression. PAST MEDICAL HISTORY None. PAST SURGICAL HISTORY 1. Tubes in his ears. 2. Tonsillectomy. ALLERGIES Chloral hydrate. SOCIAL HISTORY Positive for smoking, heroin and meth. FAMILY HISTORY Noncontributory. REVIEW OF SYSTEMS CONSTITUTIONAL: No fever or chills. HEENT: Denies any sore throat, ear pain or runny nose. CARDIOVASCULAR: Denies chest pain, irregular heart rhythm or palpitations. CHEST: Denies shortness of breath or cough. No hemoptysis. GASTROINTESTINAL: Denies nausea, vomiting, diarrhea or chronic constipation. ENDOCRINE: Denies history of increased thirst or urination. No recent significant weight loss or gain. GENITOURINARY: Denies dysuria, frequency, or hematuria. SKIN: Denies any rashes. HEMATOLOGIC: Denies history of increased bleeding or bruising. MUSCULOSKELETAL: Denies any hot, swollen joints. No generalized muscle pain. NEUROLOGIC: Denies problems with vision or speech. No frequent, severe headaches. No numbness, tingling or weakness in any extremities. Denies loss of bladder or bowel control. CURRENT MEDICATIONS None. PHYSICAL EXAMINATION GENERAL: Alert, oriented, in no acute distress. Unit #: [id number] #: [id number] Patient: ROSA MARIA MACIAS VITAL SIGNS: Temperature 98.7, heart rate 72, respirations 16, blood pressure 134/78. HEIGHT: 6 feet 1 inch. WEIGHT: 200 pounds. SKIN: Warm and dry without rash or lesion. Tattoo to the left side of the neck and face, to the left upper extremity, right upper extremity, multiple mosquito bites to bilateral lower extremities. HEENT: Normocephalic. TMs not viewed. Oral and nasal passages clear. Conjunctivae clear. PERRLA. EOMs intact. NECK: Supple without lymphadenopathy or thyromegaly. HEART: Regular rate and rhythm without murmur. LUNGS: Clear. ABDOMEN: Soft, nontender, without masses or hepatosplenomegaly. : Not done. EXTREMITIES: No evidence of cyanosis, clubbing or edema. Moves all without focal deficit. NEUROLOGICAL: Grossly within normal limits. Cranial Nerves: II: Visual harrell are intact. III, IV AND : Extraocular movements are intact. Pupils are equal, round and reactive to light. V: Facial sensation is grossly normal. VII: Facial movements and expression are normal. VIII: Auditory acuity grossly intact. IX, X: Uvula is midline. Phonation is normal. XI: Patient shrugs shoulders and turns head normally. XII: Tongue protrudes in the midline. Sensory and Motor Function: Sensory and motor sensation is grossly normal. Motor: moves all extremities well. Coordination: Gait is normal. Deep Tendon Reflexes: Intact. IMPRESSION Psychiatric admission. RECOMMENDATIONS PSYCHIATRIC: Per psychiatrist. MEDICAL: No contraindication to participate in facility's activities. MEDICAL PROGNOSIS Good. Dictated by... Gisela Brooks/skylar TD: 03/09/2017 15:48 JOB #: [id number] Unit #: [id number] #: [id number] Patient: ROSA MARIA MACIAS HISTORY AND PHYSICAL Page 1 of 1 X Liudmila Dietrich APR X HISTORY AND PHYSICAL
--- NOTE | ~2017-03-08 | PN ---
Unit #: [id number] #: [id number] Patient: ROSA MARIA MACIAS [id number] [facility] [address] [place] [address] [id number] I MR#: [id number] NAME: ROSA MARIA MACIAS. ROOM: [facility] Age: 31 Sex: M Admission Date: 03/08/2017 : 1985 Attending Physician: Cruz Montague M.D. Admitting Physician: Cruz Montague M.D. Primary Care Physician: Primary Care Physician Michelle GAMING NOTES DATE OF SERVICE: 03/11/2017 DISCUSSION Rosa Maria Macias is a 31-year-old male, seen on 03/11/2017. The patient interviewed, chart reviewed, and obtained information from nursing staff. The patient was compliant, cooperative, reported still having problem with the anxiety, trouble sleeping, getting up in the middle of the night. The patient reports that he was taking a much higher dosage of Wellbutrin currently on 300 mg t.i.d. The patient when last discharge from the hospital was on Neurontin 800 mg t.i.d. Complete review of systems unremarkable. MENTAL STATUS EXAMINATION General appearance, the patient dressed casually. Attention span and concentration, fair. Oriented in place and person. Mood and affect, labile. Speech, monotone. Thought process, concrete. The patient denied any thoughts of harming self or others. Recent and remote memory, poor. Insight and judgment, poor. DIAGNOSES Bipolar mood disorder, not otherwise specified. ASSESSMENT AND PLAN Advised to increase Neurontin to 600 mg t.i.d. and increase trazodone to 150 mg at bedtime. If needed, consider further adjustment of medication. Dictated by... Mala Monte/anthony TD: 03/11/2017 19:12 JOB #: [id number] Unit #: [id number] #: [id number] Patient: ROSA MARIA MACIAS [facility] PROGRESS NOT[facility] Page 1 of 1 X Cruz Montague MD X PROGRESS NOTE
[2017-03-09 11:35] LABS: URINE APPEARANCE TURBID; URINE BLOOD NEG (NEG); URINE COLOR DK YELLOW; URINE GLUCOSE 100 MG/DL (NEG); URINE KETONE NEG (NEG); URINE LEUKOCYTE ESTERASE NEG (NEG); URINE NITRATE NEG (NEG); URINE PH 5.5 (5-8); URINE PROTEIN NEG (NEG); URINE SPECIFIC GRAVITY 1.015 (1.003-1.035)
[2017-03-09 11:47] LABS: URINE BILIRUBIN POS (NEG)
[2017-03-09 11:59] LABS: AMPHETAMINE NEG (NEG); BARBITURATES NEG (NEG); BENZODIAZEPINES NEG (NEG); COCAINE NEG (NEG); MARIJUANA POS (NEG); OPIATES NEG (NEG); TRICYCLIC ANTIDEPRESSANTS NEG (NEG); U METHADONE NEG (NEG)
[2017-03-10 12:12] LABS: BASOPHIL% 0.7 % (0-2.5); EOSINOPHIL# 0.1 X10e3 (0-0.7); EOSINOPHIL% 2.5 % (0.0-7.0); HEMATOCRIT 43.1 % (38.0-50.0); LYMPHOCYTE# 1.6 X10e3 (1.0-3.5); LYMPHOCYTE% 39.8 % (17.0-45.0); MEAN CELL VOLUME 94.8 FL (83-96); MEAN CORPUSCULAR HEMOGLOBIN 30.9 PG (28-34); MEAN CORPUSCULAR HGB CONC 32.6 g/dL (30-36); MEAN PLATELET VOLUME 10.1 FL (6.5-11.5); MONOCYTE# 0.5 X10e3 (0-1.0); MONOCYTE% 12.7 % (3.0-12.0); NEUTROPHIL# 1.8 X10e3 (1.5-7.1); NEUTROPHIL% 44.3 % (40-75); PLATELET COUNT 150 X10e3 (140-420); RED BLOOD COUNT 4.55 X10e (3.90-5.60); RED CELL DISTRIBUTION WIDTH 14.1 % (11.0-15.5)
[2017-03-10 12:14] LABS: DIFF IND NO
[2017-03-10 12:30] LABS: ALBUMIN SERUM 3.2 g/dL (3.5-5.0); BILIRUBIN,TOTAL 2.3 mg/dL (0.2-2.0); BUN/CREATININE RATIO 6.66; CALCIUM SERUM 8.8 mg/dL (8.4-10.2); CREATININE SERUM 0.9 mg/dL (0.6-1.4); GLOM FILT RATE Estimated 114.2 mL/min (>60); POTASSIUM 4.2 mmol/L (3.5-5.1); PROTEIN TOTAL SERUM 5.6 g/dL (6.0-8.3)
== END 2017-03-13 11:30 | disposition home or self-care (01) | DRG 885 ==
LOC: P2L 18:45
PROVIDERS: Psychiatry & Neurology Psychiatry
DX: F31.9 Bipolar disorder, unspecified (principal); R45.851 Suicidal ideations; H91.8X9 Other specified hearing loss, unspecified ear
CPT/HCPCS: 36415; 70450; 71010; 80048; 80053; 80307; 81003; 85025; 93005

== ENCOUNTER 2017-04-28 01:00 | Inpatient (IN) | payer MEDICARE, OTHER ==
--- NOTE | ~2017-04-28 | PN ---
Unit #: [id number] #: [id number] Patient: ROSA MARIA MACIAS [id number] [facility] [address] [place] [address] [id number] I MR#: [id number] NAME: ROSA MARIA MACIAS. ROOM: 12 Age: 31 Sex: M Admission Date: 04/28/2017 : 1985 Attending Physician: Cruz Montague M.D. Admitting Physician: Cruz Montague M.D. Primary Care Physician: Generic Doctor Not In System [facility] PROGRESS NOTES DATE OF SERVICE 05/05/2017 DISCUSSION Rosa Maria is a 31-year-old male seen on 05/05/2017. The patient interviewed, chart reviewed. Obtained information from nursing staff. The patient was compliant, cooperative. Mood is brighter but still seclusive, isolative. Vital Signs: Stable, 97.6, 62, 14, 97/46. Complete Review of Systems: Unremarkable. MENTAL STATUS EXAMINATION General Appearance: The patient dressed casually. Thin built. Attention span, concentration: Fair. Oriented in time, place, and person. Mood and affect labile. Speech: Regular rate, coherent. Thought process: Goal-directed. The patient denied any thoughts of harming self or others but still sad, depressed, withdrawn, isolative. Recent and remote memory: Poor. Insight and judgment: Poor. DIAGNOSIS Bipolar mood disorder not otherwise specified. ASSESSMENT/PLAN Advised to continue with current medication and therapeutic protocol. If needed, consider further adjustment of medication. Dictated by... Mala Monte/gabriel TD: 05/08/2017 10:21 JOB #: [id number] Unit #: [id number] #: [id number] Patient: ROSA MARIA MACIAS [facility] PROGRESS NOTES Page 1 of 1 X Cruz Montague MD PROGRESS NOTE
--- NOTE | ~2017-04-28 | DS ---
Unit #: [id number] #: [id number] Patient: ROSA MARIA MACIAS [id number] [facility] [address] [place] [address] [id number] I MR#: [id number] NAME: ROSA MARIA MACIAS. ROOM: 12 Age: 31 Sex: M Admission Date: 04/28/2017 : 1985 Discharge Date: 05/06/2017 Attending Physician: Cruz Montague M.D. Primary Care Physician: Generic Doctor Not In System DISCHARGE SUMMARY REASON FOR ADMISSION Depression. DIAGNOSTIC STUDIES LABORATORY RESULTS: Unremarkable. HOSPITAL COURSE The patient was admitted to inpatient unit on 04/28/2017 and discharged on 05/06/2017. The patient was treated with group therapy, individual therapy, and medication management. The patient was responsive to treatment and showed improvement. Subsequently, the patient was discharged with a plan to follow up in outpatient program. DISCHARGE MEDICATIONS Zoloft 100 mg at bedtime for depression, Desyrel 150 mg at bedtime for sleep, Bactrim DS one tablet b.i.d. for upper respiratory tract infection, Wellbutrin 150 mg in the morning for depression, and Zyprexa 10 mg daily for psychosis. DISCHARGE DIAGNOSES Psychiatric: Major depressive disorder, recurrent, severe, F33.2 and rule out schizoaffective disorder, bipolar type. Secondary diagnosis: Deferred. Medical diagnoses: History of herniated disk, bruised ribs, and history of hearing impairment. Stressors: Psychosocial stressors. DISCHARGE INSTRUCTIONS The patient to follow up in outpatient clinic as per social service agency director. CONDITION ON DISCHARGE The patient was pleasant and cooperative. Denied any psychotic symptom or any suicidal ideation. PROGNOSIS Guarded. DIET AND ACTIVITY As tolerated. Unit #: [id number] #: [id number] Patient: ROSA MARIA MACIAS Dictated by... Mala MonteC/curtisl TD: 05/06/2017 17:40 JOB #: [id number] DISCHARGE SUMMARY Page 1 of 1 X Cruz Montague MD X DISCHARGE SUMMARY
--- NOTE | ~2017-04-28 | HP ---
Unit #: [id number] #: [id number] Patient: ROSA MARIA MACIAS [id number] [place] [address] [id number] I MR#: [id number] NAME: ROSA MARIA MACIAS. ROOM: 12 Age: 31 Sex: M Admission Date: 04/28/2017 : 1985 Attending Physician: Cruz Montague M.D. Admitting Physician: Cruz Montague M.D. Primary Care Physician: Generic Doctor Not In System HISTORY AND PHYSICAL HISTORY OF PRESENT ILLNESS Patient is a 31-year-old male admitted to [address] [place] [address] on 04/28/2017 for suicidal ideations, visual and auditory hallucinations and methamphetamine and heroin abuse. At the time of assessment patient was medically sedated and I was unable to awaken him for history and physical. The majority of information was retrieved from the chart. PAST MEDICAL HISTORY 1. Heroin and methamphetamine abuse. 2. Psychosis. 3. Asthma. 4. Hearing impaired. 5. Herniated disc. 6. Smoker. PAST SURGICAL HISTORY 1. PE tubes. 2. Tonsillectomy. SOCIAL HISTORY He is disabled. He lives with his mom. He smokes a 1/2 pack of cigarettes daily. He uses methamphetamine and heroin on a daily basis. FAMILY MEDICAL HISTORY Noncontributory. ALLERGIES Chloral hydrate. CURRENT MEDICATIONS 1. Zoloft 2. Trazodone 3. Voltaren 4. Bactrim 5. Wellbutrin REVIEW OF SYSTEMS Unable to obtain. PHYSICAL EXAM GENERAL: He is in no acute distress and sleeping. VITAL SIGNS: Temperature 98.2, heart rate 98, respiration 20, blood pressure 132/90. Unit #: [id number] #: [id number] Patient: ROSA MARIA MACIAS HEIGHT: 6'1". WEIGHT: 200 pounds. SKIN: Warm and dry without rash or lesion. HEENT: Normocephalic. TMs not viewed. Oral and nasal passages clear. Conjunctivae clear. PERRLA. EOMs intact. NECK: Supple without lymphadenopathy or thyromegaly. HEART: Regular rate and rhythm without murmur. LUNGS: Clear. ABDOMEN: Soft, nontender. : Not done. EXTREMITIES: No evidence of cyanosis, clubbing or edema. Moves all without focal deficit. NEUROLOGICAL: Grossly within normal limits. Cranial Nerves: II: Visual harrell are intact. III, IV AND : Extraocular movements are intact. Pupils are equal, round and reactive to light. V: Facial sensation is grossly normal. VII: Facial movements and expression are normal. VIII: Auditory acuity grossly intact. IX, X: Uvula is midline. Phonation is normal. XI: Patient shrugs shoulders and turns head normally. XII: Tongue protrudes in the midline. Sensory and Motor Function: Sensory and motor sensation is grossly normal. Motor: moves all extremities well. IMPRESSION 1. Psychiatric admission. 2. Heroin and methamphetamine abuse. 3. Psychosis. 4. Asthma. 5. Hearing impaired. 6. Disc herniation. 7. Smoker. RECOMMENDATIONS Psychiatric per psychiatrist. MEDICAL: No contraindication to participate in facility activities. MEDICAL PROGNOSIS Fair. MEDICAL CONDITION Stable. Dictated by... Gisela Suazo/clarisa TD: 04/29/2017 01:16 JOB #: [id number] Unit #: [id number] #: [id number] Patient: ROSA MARIA MACIAS HISTORY AND PHYSICAL Page 1 of 1 X ROZ BURNS APRN HISTORY AND PHYSICAL
--- NOTE | ~2017-04-28 | CO ---
Unit #: [id number] #: [id number] Patient: ROSA MARIA MACIAS [id number] [place] [address] [id number] I MR#: [id number] NAME: ROSA MARIA MACIAS. ROOM: P112 Age: 31 Sex: M Admission Date: 04/28/2017 : 1985 Attending Physician: Cruz Montague M.D. Primary Care Physician: Generic Doctor Not In System Consultation Date: 05/02/2017 CONSULTATION REPORT SUBJECTIVE Rosa Maria is a 31-year-old who was admitted with vesicular itchy irritating rash on his arm. We have been asked to assess and treat. OBJECTIVE GENERAL: Alert, well nourished, in no apparent distress. VITAL SIGNS: Blood pressure 120/70, heart rate 80, respirations 16, temperature 98.6. SKIN: Warm and dry. He has scattered vesicular rash along his forearm. There is evidence of excoriation and some "oozing." ASSESSMENT Contact dermatitis. PLAN Hydrocortisone cream 1% b.i.d. x5 days. Dictated by... Yamileth Chen P.A.-C. for Mala Glez/anthony TD: 05/03/2017 13:16 JOB #: [id number] CONSULTATION REPORT Page 1 of 1 X Yamileth Chen CONSULTATION REPORT
--- NOTE | ~2017-04-28 | PN ---
Unit #: [id number] #: [id number] Patient: ROSA MARIA MACIAS [id number] [facility] [address] [place] [address] [id number] I MR#: [id number] NAME: ROSA MARIA MACIAS. ROOM: 12 Age: 31 Sex: M Admission Date: 04/28/2017 : 1985 Attending Physician: Cruz Montague M.D. Admitting Physician: Cruz Montague M.D. Primary Care Physician: Generic Doctor Not In System [facility] PROGRESS NOTES DATE 05/03/2017 DISCUSSION Rosa Maria is a 31-year-old male, seen on 05/03/2017. The patient interviewed, chart reviewed, and obtained information from the nursing staff. The patient was withdrawn, isolative, flat affect, sad, dysphoric mood, able to participate in some programming, but still reporting having psychosis, paranoia, suicidal thoughts. REVIEW OF SYSTEMS Complete review of systems unremarkable. MENTAL STATUS EXAMINATION General appearance: Patient dressed casually. Attention span and concentration, fair. Oriented in time, place, and person. Mood and affect, labile. Speech, monotone. Thought process, concrete. The patient having hallucinations, attending to internal stimuli, suicidal ideation, guarded. Recent and remote memory, poor. Insight and judgment, poor. DIAGNOSIS Bipolar mood disorder, NOS. ASSESSMENT/PLAN Advised to continue with the current medication and therapeutic protocol, and if needed consider further adjustment of medication. Dictated by... Mala Monte/tello TD: 05/06/2017 05:54 JOB #: [id number] Unit #: [id number] #: [id number] Patient: ROSA MARIA MACIAS [facility] PROGRESS NOTES Page 1 of 1 X Cruz Montague MD X PROGRESS NOTE
--- NOTE | ~2017-04-28 | PN ---
Unit #: [id number] #: [id number] Patient: ROSA MARIA MACIAS [id number] [facility] [address] [place] [address] [id number] I MR#: [id number] NAME: ROSA MARIA MACIAS. ROOM: 12 Age: 31 Sex: M Admission Date: 04/28/2017 : 1985 Attending Physician: Cruz Montague M.D. Admitting Physician: Cruz Montague M.D. Primary Care Physician: Generic Doctor Not In System [facility] PROGRESS NOTES DATE OF SERVICE 05/01/2017 DISCUSSION Rosa Maria Macias is a 31-year-old male seen on 05/01/2017. The patient interviewed, chart reviewed. Obtained information from nursing staff. The patient withdrawn, isolative, flat affect. Sad, dysphoric mood. Still having passive SI. Withdrawn, isolative. Complete Review of Systems: Unremarkable. MENTAL STATUS EXAMINATION General Appearance: The patient dressed casually. Attention span, concentration: Fair. Oriented in time, place, and person. Mood and affect labile. Speech: Monotone. Thought process: [place]. The patient denied any thoughts of harming self or others. Recent and remote memory: Poor. Insight and judgment: Poor. DIAGNOSES 1. Major depressive disorder, recurrent, severe, F33.2. 2. Anxiety disorder not otherwise specified. 3. Rule out bipolar mood disorder. 4. History of cannabis abuse. ASSESSMENT/PLAN Advised to continue with current medication and therapeutic protocol. If needed, consider further adjustment of medication. Dictated by... Mala Monte/gabriel TD: 05/02/2017 10:50 JOB #: [id number] Unit #: [id number] #: [id number] Patient: ROSA MARIA MACIAS [facility] PROGRESS NOTES Page 1 of 1 X Cruz Montague MD X PROGRESS NOTE
--- NOTE | ~2017-04-28 | PN ---
Unit #: [id number] #: [id number] Patient: ROSA MARIA MACIAS [id number] [facility] [address] [place] [address] [id number] MR#: [id number] NAME: ROSA MARIA MACIAS. ROOM: 12 Age: 31 Sex: M Admission Date: 04/28/2017 : 1985 Attending Physician: Cruz Montague M.D. Admitting Physician: Cruz Montague M.D. Primary Care Physician: Generic Doctor Not In System [facility] PROGRESS NOTES DATE 04/30/2017 DISCUSSION Rosa Maria Macias is a 31-year-old male, seen on 04/30/2017. The patient interviewed, chart reviewed, and obtained information from the nursing staff. The patient was sad, dysphoric, anxious, reported still having suicidal thoughts, sad, depressed, reported mediation making him sleepy in the morning. the patient was concerned about the upcoming court and legal problems and the charges that he is facing for possession of drugs. REVIEW OF SYSTEMS Complete review of systems unremarkable. MENTAL STATUS EXAMINATION General appearance: Patient dressed casually. Attention span and concentration, fair. Oriented in time, place, and person. Mood and affect, sad and depressed. Speech, monotone. Thought process, concrete. The patient reported having suicidal ideation, sad, depressed, withdrawn, isolative. Recent and remote memory, poor. Insight and judgment, poor. DIAGNOSES 1. Major depressive disorder, recurrent, severe, F33.2. 2. Anxiety disorder, NOS, F40.01. 3. Rule out bipolar mood disorder. ASSESSMENT/PLAN Advised to continue with the current medication and therapeutic protocol, if needed consider further adjustment of medication. Dictated by... Mala Monte/tello TD: 05/01/2017 11:55 JOB #: [id number] Unit #: [id number] #: [id number] Patient: ROSA MARIA MACIAS [facility] PROGRESS NOTES Page 1 of 1 X Cruz Montague MD PROGRESS NOTE
--- NOTE | ~2017-04-28 | PA ---
Unit #: [id number] #: [id number] Patient: ROSA MARIA MACIAS [id number] [place] [address] [id number] I MR#: [id number] NAME: ROSA MARIA MACIAS. ROOM: 12 Age: 31 Sex: M Admission Date: 04/28/2017 : 1985 Date of Assessment: 04/28/2010 Attending Physician: Cruz Montague M.D. Admitting Physician: Cruz Montague M.D. Primary Care Physician: Generic Doctor Not In System PSYCHIATRIC ASSESSMENT INFORMANTS The patient reliability, poor informant and chart reliability, good. CHIEF COMPLAINT "Anger." HISTORY OF PRESENT ILLNESS Rosa Maria Macias is a 31-year-old white male, well known to us from his previous admission on 03/08/2017 and previous multiple admissions. The patient was admitted due to [id number] behavior, psychotic symptoms, and paranoia. The patient has a history of previous treatment in 2017, three times at [facility] outpatient services. The patient is currently disabled. Reported hearing things, seeing things. Used amphetamine. The patient reported having auditory and visual hallucination telling him to take bunch of pills, to let the police shoot him. The patient reported that he got it in himself in the garage because he was running from police and he thinks that the police is after him. The patient reports that he used 1 to 1.5 g of meth daily. The patient denied any homicidal ideation, but aggressive and impulsive, needing p.r.n. Haldol 10 mg, Cogentin 1 mg, and Ativan 1 mg IM. PAST PSYCHIATRIC HISTORY Remarkable for history of multiple treatment at [facility], last treatment on 03/08/2017. FAMILY HISTORY AND SOCIAL HISTORY The patient has a good support system from his mother. History of addiction in sister. History of depression in mother. The patient denied any history of any abuse, but history of substance abuse. Denied any legal charges. MEDICAL HISTORY Remarkable for history of herniated disk, bruised ribs, and hearing impairment. Musculoskeletal; muscle strength and tone, no atrophy or abnormal movement. Gait normal. MEDICATION HISTORY The patient is on BuSpar, Neurontin, Zoloft, and Wellbutrin. ALLERGIES No known drug allergies. SUBSTANCE ABUSE HISTORY Unit #: [id number] #: [id number] Patient: ROSA MARIA MACIAS Age of onset of tobacco 18; alcohol, 15; marijuana, 15; opioid, 24; amphetamine, 22; benzodiazepine, 21. History of blackouts. History of IV drug use. REVIEW OF SYSTEMS HEENT: Eyes, clear. Ears, nose, mouth, and throat; clear. CARDIOVASCULAR: Unremarkable. RESPIRATORY: Unremarkable. GI: Unremarkable. : Unremarkable. SKIN: Unremarkable. LYMPH NODE: Unremarkable. NEUROLOGIC: Unremarkable. ENDOCRINE: Unremarkable. HEMATOLOGIC: Unremarkable. ALLERGIC/IMMUNOLOGIC: Unremarkable. MUSCULOSKELETAL: Muscle strength and tone, no atrophy or abnormal movement. Gait normal. MENTAL STATUS EXAMINATION CONSTITUTIONAL: Measurement of vital signs; temperature oxygen saturation 100%, and blood pressure 132/90. Height 6 feet and 1 inch. GENERAL APPEARANCE: The patient dressed casually. No facial deformity noted. MUSCULOSKELETAL: Please see above. PSYCHIATRIC EXAMINATION Description of speech, slow in volume. Description of thought process, circumstantial. Description of association, guarded and paranoid. Description of abnormal psychotic thinking; guarded, paranoid, mood lability, and aggressive behavior. Description of the patient's judgment: Concerning everyday activity, poor. Social situation, poor. Concerning psychiatric condition, poor. Complete mental status examination, oriented in self. Recent and remote memory, poor. Attention span and concentration, poor. Language, fair. Fund of knowledge, poor. Vocabulary, poor. Mood and affect, sad and dysphoric. Insight and judgment, fair to poor. ASSETS AND LIABILITIES Assets, the patient is articulate and able to take care of his ADL. Liability; history of depression, aggression, and substance abuse. ADMITTING DIAGNOSES Psychiatric: Major depressive disorder, recurrent, severe, with psychotic feature, F33.3 and amphetamine use disorder, severe, F15.20. Secondary diagnosis: Deferred. Medical diagnoses: History of herniated disk, hearing impairment, and bruised ribs. Stressors: Psychosocial stressors. PSYCHIATRIC PLAN AND TREATMENT GOAL AND DISCHARGE PLAN 1. Advised to admit the patient on the inpatient unit. Provide safe, supportive, and structured environment. 2. Ordered labs; CBC, CMP, UA, and UDS. 3. Precaution for aggression and self-harm. Unit #: [id number] #: [id number] Patient: ROSA MARIA MACIAS S 4. The patient to attend all the programing, group therapy, individual therapy, and medication management. Treatment goal to attain euthymic mood, gain insight into his problem, and learn coping skills. DISCHARGE PLAN Plan to stabilize the patient and consider followup in outpatient program. ESTIMATED LENGTH OF STAY 2 weeks. Dictated by... Mala Monte/anthony TD: 04/28/2017 15:13 JOB #: [id number] PSYCHIATRIC ASSESSMENT Page 1 of 1 X Cruz Montague MD PSYCHIATRIC ASSESSMENT
--- NOTE | ~2017-04-28 | PN ---
Unit #: [id number] #: [id number] Patient: ROSA MARIA MACIAS [id number] [facility] [address] [place] [address] [id number] I MR#: [id number] NAME: ROSA MARIA MACIAS. ROOM: P112 Age: 31 Sex: M Admission Date: 04/28/2017 : 1985 Attending Physician: Cruz Montague M.D. Admitting Physician: Cruz Montague M.D. Primary Care Physician: Generic Doctor Not In System [facility] PROGRESS NOTES DATE OF SERVICE: 05/02/2017 DISCUSSION Rosa Maria is a 31-year-old male, seen on 05/02/2017. The patient interviewed, chart reviewed, and obtained information from nursing staff. The patient continues to be sad, dysphoric, flat affect, withdrawn, isolative, passive SI. REVIEW OF SYSTEMS Complete review of systems unremarkable. MENTAL STATUS EXAMINATION General appearance, the patient dressed casually. Attention span and concentration, fair. Oriented in place and person. Mood and affect, sad and dysphoric. Speech, monotone. Thought process, concrete. The patient denied any thoughts of harming self or others, but guarded. Recent and remote memory, poor. Insight and judgment, poor. DIAGNOSIS Bipolar mood disorder, not otherwise specified. ASSESSMENT AND PLAN Advised to continue with current medication and therapeutic protocol. If needed, consider further adjustment of medication. Dictated by... Mala Monte/anthony TD: 05/02/2017 17:56 JOB #: [id number] Unit #: [id number] #: [id number] Patient: ROSA MARIA MACIAS [facility] PROGRESS NOTES Page 1 of 1 X Cruz Montague MD PROGRESS NOTE
--- NOTE | ~2017-04-28 | PN ---
Unit #: [id number] #: [id number] Patient: ROSA MARIA MACIAS [id number] [facility] [address] [place] [address] [id number] MR#: [id number] NAME: ROSA MARIA MACIAS. ROOM: 12 Age: 31 Sex: M Admission Date: 04/28/2017 : 1985 Attending Physician: Cruz Montague M.D. Admitting Physician: Cruz Montague M.D. Primary Care Physician: Generic Doctor Not In System [facility] PROGRESS NOTES DATE 05/04/2017 DISCUSSION Rosa Maria is a 31-year-old male, seen on 05/04/2017. The patient interviewed, chart reviewed, and obtained information from the nursing staff. The patient was compliant and cooperative. Mood labile. The patient's vital signs, 97.5, 61, 14, and 79/40. The patient continues to be isolative, guarded, flat affect. REVIEW OF SYSTEMS Complete review of systems unremarkable. MENTAL STATUS EXAMINATION General appearance: Patient dressed casually. Attention span and concentration, fair. Oriented in time, place, and person. Mood and affect, sad, depressed. Speech, monotone. Thought process, concrete. The patient having passive SI, withdrawn, isolative, guarded, paranoid. Recent and remote memory, poor. Insight and judgment, poor. DIAGNOSIS Bipolar mood disorder, NOS. ASSESSMENT/PLAN Advised to continue with the current medication and therapeutic protocol, and if needed consider further adjustment of medication. Dictated by... Mala Monte/tello TD: 05/07/2017 08:02 JOB #: [id number] Unit #: [id number] #: [id number] Patient: ROSA MARIA MACIAS [facility] PROGRESS NOTES Page 1 of 1 X Cruz Montague MD PROGRESS NOTE
--- NOTE | ~2017-04-28 | PN ---
Unit #: [id number] #: [id number] Patient: ROSA MARIA MACIAS [id number] [facility] [address] [place] [address] [id number] MR#: [id number] NAME: ROSA MARIA MACIAS. ROOM: 12 Age: 31 Sex: M Admission Date: 04/28/2017 : 1985 Attending Physician: Cruz Montague M.D. Admitting Physician: Cruz Montague M.D. Primary Care Physician: Generic Doctor Not In System [facility] PROGRESS NOTES DATE OF SERVICE 04/29/2017 DISCUSSION Rosa Maria is a 31-year-old male seen on 04/29/2017. Patient interviewed, chart reviewed. Obtained information from nursing staff. Patient was compliant and cooperative. Mood was labile. Patient guarded, paranoid, withdrawn isolative, guarded, poor boundaries. Complete review of systems unremarkable. MENTAL STATUS EXAMINATION General appearance, patient dressed casually. Attention span and concentration fair. Oriented to time, place and person. Mood and affect labile. Speech monotone. Thought process concrete. Patient denied any thoughts of harming self or others but guarded, paranoid, withdrawn, isolative. Recent and remote memory poor. Insight and judgement poor. Patient is still having passive SI, hopelessness. Insight and judgement impaired. DIAGNOSES Bipolar mood disorder NOS. Amphetamine use disorder severe. ASSESSMENT/PLAN Advise to continue with current medication and therapeutic protocol. If needed consider further adjustment of medication. Dictated by... Mala Monte/clarisa TD: 05/01/2017 02:26 JOB #: [id number] Unit #: [id number] #: [id number] Patient: ROSA MARIA MACIAS [facility] PROGRESS NOTES Page 1 of 1 X Cruz Montague MD PROGRESS NOTE
[2017-04-29 10:12] LABS: BASOPHIL% 1.2 % (0-2.5); EOSINOPHIL# 0.2 X10e3 (0-0.7); EOSINOPHIL% 5.5 % (0.0-7.0); HEMATOCRIT 42.2 % (38.0-50.0); HEMOGLOBIN 14.4 gm/dL (13.0-16.0); LYMPHOCYTE# 1.1 X10e3 (1.0-3.5); LYMPHOCYTE% 36.9 % (17.0-45.0); MEAN CELL VOLUME 92.7 FL (83-96); MEAN CORPUSCULAR HEMOGLOBIN 31.6 PG (28-34); MEAN CORPUSCULAR HGB CONC 34.1 g/dL (30-36); MEAN PLATELET VOLUME 8.8 FL (6.5-11.5); MONOCYTE# 0.4 X10e3 (0-1.0); NEUTROPHIL# 1.3 X10e3 (1.5-7.1); NEUTROPHIL% 43.4 % (40-75); PLATELET COUNT 158 X10e3 (140-420); RED BLOOD COUNT 4.55 X10e (3.90-5.60); RED CELL DISTRIBUTION WIDTH 14.3 % (11.0-15.5)
[2017-04-29 10:14] LABS: DIFF IND NO
[2017-04-29 10:39] LABS: ALBUMIN SERUM 3.5 g/dL (3.5-5.0); BILIRUBIN,TOTAL 0.9 mg/dL (0.2-2.0); CALCIUM SERUM 8.6 mg/dL (8.4-10.2); GLOM FILT RATE Estimated 100.6 mL/min (>60)
[2017-05-03 12:58] LABS: AMPHETAMINE NEG (NEG); BARBITURATES NEG (NEG); BENZODIAZEPINES NEG (NEG); COCAINE NEG (NEG); MARIJUANA NEG (NEG); OPIATES NEG (NEG); TRICYCLIC ANTIDEPRESSANTS NEG (NEG); U METHADONE NEG (NEG)
[2017-05-03 13:05] LABS: URINE APPEARANCE CLEAR; URINE BILIRUBIN NEG (NEG); URINE BLOOD NEG (NEG); URINE COLOR YELLOW; URINE GLUCOSE NEG (NEG); URINE KETONE NEG (NEG); URINE LEUKOCYTE ESTERASE NEG (NEG); URINE NITRATE NEG (NEG); URINE PROTEIN NEG (NEG); URINE SPECIFIC GRAVITY 1.009 (1.003-1.035); URINE UROBILINOGEN 0.2 MG/DL (NEG)
== END 2017-05-06 11:34 | disposition home or self-care (01) | DRG 885 ==
LOC: P1S 03:21
PROVIDERS: Psychiatry & Neurology Psychiatry
DX: F33.2 Major depressive disorder, recurrent severe without psychotic features (principal); F15.20 Other stimulant dependence, uncomplicated; F11.10 Opioid abuse, uncomplicated; J45.909 Unspecified asthma, uncomplicated; F41.9 Anxiety disorder, unspecified; L25.9 Unspecified contact dermatitis, unspecified cause
CPT/HCPCS: 80053; 80307; 81003; 85025; J0515; J1630; J2060